=== PATIENT | male | born 1945 ===

== ENCOUNTER 2021-06-16 14:07 | Inpatient (IN) | payer MEDICARE, BC ==
[~2021-06-16] VITALS: Ht 165.1 cm; Wt 173.4 kg
[2021-06-16] MEDS ORDERED: ATROPINE SULF 0.5 MG/5ML SYR ONE (14:14)
[2021-06-16] MEDS ORDERED: DOPamine 1600MCG/ML D5W 250 ML IV ONE (14:18)
[2021-06-16] MEDS ORDERED: ATROPINE SULF 1 MG/10ml SYR IV ONE ×2 (14:30)
[2021-06-16] MEDS ORDERED: GLUCAGON HYDROCHLORIDE (RDNA) 1 MG VIAL IV ONE (14:45)
[2021-06-16 14:46] LABS: Basophils # (auto) 0.1 10 ^3/uL (0-0.2); Basophils % (auto) 1.3 % (0.0-2.0); Eosinophils # (auto) 0.1 10 ^3/uL (0-0.8); Eosinophils % (auto) 2.2 % (0.0-7.0); Hematocrit 33.4 % (41.0-53.0); Hemoglobin 11.5 g/dL (13.5-17.5); Lymphocytes % (auto) 16.4 % (10.0-50.0); Mean Corpuscular Hemoglobin 31.8 pg (28.0-32.0); Mean Corpuscular Hgb Conc. 34.5 g/dL (32.0-36.0); Mean Corpuscular Volume 92.2 fL (80.0-100.0); Monocytes # (auto) 0.5 10 ^3/uL (0-1.3); Monocytes % (auto) 7.9 % (0.0-12.0); Neutrophils # (auto) 4.5 10 ^3/uL (1.6-8.6); Neutrophils % (auto) 72.2 % (37.0-80.0); Red Blood Cells 3.63 10^6/uL (4.5-5.90); Red Cell Distribution Width 13.7 % (11.8-14.3); White Blood Cell 6.3 10^3/uL (4.4-10.8)
[2021-06-16 15:01] LABS: Albumin 3.2 g/dL (3.4-5.0); Calcium 8.3 mg/dL (8.5-10.1); Magnesium 2.9 mg/dL (1.6-2.6)
[2021-06-16 15:06] LABS: BUN/Creatinine Ratio 17.4; Bilirubin, Total 0.8 mg/dL (0.2-1.0); INR 1.06 (0.9-1.15); Partial Thromboplastin Time 25.1 sec (23.6-33.0); Phosphorus 5.7 mg/dL (2.5-4.90); Total Protein 6.6 g/dL (6.4-8.2)
[2021-06-16] MEDS ORDERED: InsuLIN REG 1unit/0.01ml Soln (100units/ml) IV ONE (15:45)
[2021-06-16] MEDS ORDERED: CALCIUM CHL 100MG/ML 1,000 MG in D5W 5% 100 ML IV ONE (15:45)
[2021-06-16] MEDS ORDERED: SODIUM BICARBONATE 8.4% INJ 50ML SYRINGE IV ONE (15:45)
[2021-06-16] MEDS ORDERED: SODIUM ZIRCONIUM CYCL 10 GM PAK PO ONE (15:45)
[2021-06-16] MEDS ORDERED: DEXTROSE (50%) 50ML SYRG IV ONE (15:45)
[2021-06-16] MEDS ORDERED: HYDROcodone-ACET 5/325MG TAB PO PRN (18:00)
[2021-06-16] MEDS ORDERED: ONDANSETRON HCL 4 MG/2 ML VIAL IV PRN (18:00)
[2021-06-16] MEDS ORDERED: SODIUM CHLORIDE 0.9% 1,000 ML IV SCH (18:00)
[2021-06-16] MEDS ORDERED: TAMSULOSIN HYDROCHLORIDE 0.4 MG CAP PO SCH (18:00)
[2021-06-16] MEDS ORDERED: ACETAMINOPHEN 325 MG TAB PO PRN (18:00)
[2021-06-16] MEDS ORDERED: hydrALAZINE HCL 20 MG/ML VL IV PRN (18:00)
[2021-06-16] MEDS ORDERED: MORPHINE SULFATE INJECTION 2 MG/ML SYRG IV PRN (18:00)
[2021-06-16] MEDS ORDERED: NITROGLYCERIN 0.4 MG SL TAB SL PRN (18:00)
[2021-06-16] MEDS ORDERED: DOCUSATE SOD 100 MG CAP PO PRN (18:00)
[2021-06-16] MEDS ORDERED: DEXTROSE (50%) 50ML SYRG IV PRN (18:00)
[2021-06-16] MEDS ORDERED: FIN5T PO (18:21)
[2021-06-16] MEDS ORDERED: SPIR25TA8 PO (18:21)
[2021-06-16] MEDS ORDERED: PARO1TAB33 PO (18:21)
[2021-06-16] MEDS ORDERED: TAMS0.4C36 PO (18:21)
[2021-06-16] MEDS ORDERED: METO-289 PO (18:21)
[2021-06-16] MEDS ORDERED: ATOR-47 PO (18:21)
[2021-06-16] MEDS ORDERED: INSU100I43 SC (18:21)
[2021-06-16] MEDS ORDERED: IRBE300T43 PO (18:21)
[2021-06-16] MEDS ORDERED: ATOR40TA52 PO (18:21)
[2021-06-16] MEDS ORDERED: AMLO-496 PO (18:21)
[2021-06-16 20:15] VITALS: BP 146/78
[2021-06-16] MEDS: ASCORBIC ACID 500 MG TAB PO SCH (21:43)
[2021-06-16] MEDS: ATORVASTATIN 20 MG TAB PO SCH (21:43)
[2021-06-16] MEDS: InsuLIN REG 1unit/0.01ml Soln (100units/ml) SC SCH (21:52)
[2021-06-17] MEDS: ACCU-CHEK COMFORT CURVE STRIP VI SCH ×5 (02:43→22:17)
[2021-06-17 05:46] LABS: Basophils # (auto) 0 10 ^3/uL (0-0.2); Basophils % (auto) 0.4 % (0.0-2.0); Eosinophils # (auto) 0.2 10 ^3/uL (0-0.8); Eosinophils % (auto) 2.4 % (0.0-7.0); Hematocrit 34.9 % (41.0-53.0); Hemoglobin 12.3 g/dL (13.5-17.5); Lymphocytes # (auto) 1.3 10 ^3/uL (0.4-5.4); Lymphocytes % (auto) 16.5 % (10.0-50.0); Mean Corpuscular Hemoglobin 31.6 pg (28.0-32.0); Mean Corpuscular Hgb Conc. 35.1 g/dL (32.0-36.0); Mean Corpuscular Volume 90.1 fL (80.0-100.0); Monocytes # (auto) 0.7 10 ^3/uL (0-1.3); Monocytes % (auto) 8.7 % (0.0-12.0); Neutrophils # (auto) 5.7 10 ^3/uL (1.6-8.6); Red Blood Cells 3.88 10^6/uL (4.5-5.90); Red Cell Distribution Width 13.6 % (11.8-14.3)
[2021-06-17 06:05] LABS: Potassium 5.3 mmol/L (3.5-5.1)
[2021-06-17 06:10] LABS: Albumin 3.3 g/dL (3.4-5.0); BUN/Creatinine Ratio 19.3; Calcium 9.3 mg/dL (8.5-10.1); Magnesium 2.7 mg/dL (1.6-2.6); Phosphorus 4.3 mg/dL (2.5-4.90); Total Protein 7.2 g/dL (6.4-8.2)
[2021-06-17] MEDS: InsuLIN REG 1unit/0.01ml Soln (100units/ml) SC SCH ×4 (06:33→22:18)
[2021-06-17] MEDS ORDERED: ATROPINE SULF 1 MG/10ml SYR IM ONE (07:47)
[2021-06-17 09:00] VITALS: BP 132/63
[2021-06-17] MEDS ORDERED: FINASTERIDE 5 MG TAB PO SCH (10:00)
[2021-06-17] MEDS: ZINC SULFATE 220mg CAP or TAB PO SCH (10:12)
[2021-06-17] MEDS: ASPirin 81 mg TAB PO SCH (10:12)
[2021-06-17] MEDS: ASCORBIC ACID 500 MG TAB PO SCH ×2 (10:13→22:15)
[2021-06-17] MEDS: MULTIPLE VITAMIN TAB PO SCH (10:14)
[2021-06-17] MEDS ORDERED: ATROPINE SULF 1 MG/10ml SYR IV PRN (10:30)
[2021-06-17] MEDS: LACTATED RINGER'S 1,000 ML IV SCH (11:21)
[2021-06-17] MEDS: INSULIN NPH Isophane (HUMAN) 1unit/0.01ml Susp(100units/ml) SC SCH ×2 (11:23→17:33)
[2021-06-17] MEDS: PARoxetine 20 MG TAB PO SCH (11:25)
[2021-06-17 13:00] VITALS: BP 124/64
[2021-06-17] MEDS ORDERED: SODIUM ZIRCONIUM CYCL 10 GM PAK PO ONE (13:30)
[2021-06-17 15:06] LABS: Urine Bacteria NONE SEEN /hpf (None Seen); Urine Blood Negative /uL (Negative); Urine WBC <1 /hpf (0 - 3)
[2021-06-17 16:01] LABS: Sodium Urine 51 mmol/L (40-220)
[2021-06-17 16:03] LABS: Creatinine, Urine 74 mg/dL (30.0-125.0)
[2021-06-17 17:00] VITALS: BP 140/66
[2021-06-17] MEDS: HEPARIN SODIUM (PORCINE) 5000 UNITS/ML 1ML VIAL SC SCH ×2 (17:00→22:16)
[2021-06-17] MEDS ORDERED: TAMSULOSIN HYDROCHLORIDE 0.4 MG CAP PO SCH (18:00)
[2021-06-17 18:12] LABS: Calcium 8.7 mg/dL (8.5-10.1); Potassium 5.5 mmol/L (3.5-5.1)
[2021-06-17 20:42] VITALS: BP 140/66
[2021-06-17 22:00] VITALS: BP 153/74
[2021-06-17] MEDS ORDERED: ATORVASTATIN 20 MG TAB PO SCH (22:00)
[2021-06-17] MEDS: ATORVASTATIN 20 MG TAB PO SCH (22:15)
[2021-06-18] MEDS: LACTATED RINGER'S 1,000 ML IV SCH (03:13)
[2021-06-18 05:00] VITALS: BP 136/77
[2021-06-18] MEDS: ACCU-CHEK COMFORT CURVE STRIP VI SCH (06:25)
[2021-06-18] MEDS: HEPARIN SODIUM (PORCINE) 5000 UNITS/ML 1ML VIAL SC SCH (06:25)
[2021-06-18] MEDS: InsuLIN REG 1unit/0.01ml Soln (100units/ml) SC SCH (06:26)
[2021-06-18] MEDS: INSULIN NPH Isophane (HUMAN) 1unit/0.01ml Susp(100units/ml) SC SCH (06:27)
[2021-06-18 07:55] LABS: Basophils # (auto) 0 10 ^3/uL (0-0.2); Basophils % (auto) 0.3 % (0.0-2.0); Eosinophils # (auto) 0.2 10 ^3/uL (0-0.8); Eosinophils % (auto) 3.1 % (0.0-7.0); Hematocrit 33.3 % (41.0-53.0); Hemoglobin 11.9 g/dL (13.5-17.5); Lymphocytes # (auto) 1.1 10 ^3/uL (0.4-5.4); Mean Corpuscular Hemoglobin 31.9 pg (28.0-32.0); Mean Corpuscular Hgb Conc. 35.6 g/dL (32.0-36.0); Mean Corpuscular Volume 89.4 fL (80.0-100.0); Monocytes # (auto) 0.5 10 ^3/uL (0-1.3); Monocytes % (auto) 8.5 % (0.0-12.0); Neutrophils # (auto) 3.9 10 ^3/uL (1.6-8.6); Neutrophils % (auto) 68.1 % (37.0-80.0); Red Blood Cells 3.72 10^6/uL (4.5-5.90); Red Cell Distribution Width 13.1 % (11.8-14.3); White Blood Cell 5.7 10^3/uL (4.4-10.8)
[2021-06-18 07:56] LABS: Potassium 4.3 mmol/L (3.5-5.1)
[2021-06-18 08:04] LABS: Albumin 3.2 g/dL (3.4-5.0); BUN/Creatinine Ratio 20.8; Bilirubin, Total 0.7 mg/dL (0.2-1.0); Calcium 8.8 mg/dL (8.5-10.1); Magnesium 2.5 mg/dL (1.6-2.6); Phosphorus 4.2 mg/dL (2.5-4.90); Total Protein 6.6 g/dL (6.4-8.2)
[2021-06-18 08:44] VITALS: BP 133/76
[2021-06-18] MEDS: ZINC SULFATE 220mg CAP or TAB PO SCH (09:50)
[2021-06-18] MEDS: ASPirin 81 mg TAB PO SCH (09:50)
[2021-06-18] MEDS: PARoxetine 20 MG TAB PO SCH (09:51)
[2021-06-18] MEDS: ASCORBIC ACID 500 MG TAB PO SCH (09:51)
[2021-06-18] MEDS: MULTIPLE VITAMIN TAB PO SCH (09:51)
[2021-06-18 10:46] VITALS: BP 133/76
== END 2021-06-18 12:28 | disposition home or self-care (01) | DRG 640 ==
LOC: ER 14:07 → TELE 17:49 → TELE-WESTW 20:15
PROVIDERS: ADMIT Nurse Practitioner Family; ATTEND Nurse Practitioner Family
PROC: 5A09357 Assistance with Respiratory Ventilation, Less than 24 Consecutive Hours, Continuous Positive Airway Pressure (ICD-10-PCS; principal; 2021-06-17)
DX: E87.5 Hyperkalemia (principal); N17.0 Acute kidney failure with tubular necrosis; R00.1 Bradycardia, unspecified; I44.30 Unspecified atrioventricular block; D69.6 Thrombocytopenia, unspecified; E10.65 Type 1 diabetes mellitus with hyperglycemia; E78.5 Hyperlipidemia, unspecified; Z20.822 Contact with and (suspected) exposure to COVID-19; G47.30 Sleep apnea, unspecified; I12.9 Hypertensive chronic kidney disease with stage 1 through stage 4 chronic kidney disease, or unspecified chronic kidney disease; I25.10 Atherosclerotic heart disease of native coronary artery without angina pectoris; N18.30 Chronic kidney disease, stage 3 unspecified; N40.0 Benign prostatic hyperplasia without lower urinary tract symptoms; Z96.41 Presence of insulin pump (external) (internal); I95.9 Hypotension, unspecified; R42 Dizziness and giddiness; Z79.4 Long term (current) use of insulin; Z79.899 Other long term (current) drug therapy; Z82.49 Family history of ischemic heart disease and other diseases of the circulatory system; Z95.1 Presence of aortocoronary bypass graft; Z95.5 Presence of coronary angioplasty implant and graft
CPT/HCPCS: 36415; 36600; 71045; 80048; 80053; 80061; 81001; 82570; 82805; 82962; 83036; 83615; 83735; 83880; 84100; 84133; 84300; 84436; 84443; 84481; 84484; 85025; 85610; 85730; 86850; 86900; 86901; 87040; 93005; 93306; 94660; 96365; 96375; 99291; G0378; J0461; J1815; J7060